=== PATIENT | female | born 1985 | race Caucasian/White ===

== ENCOUNTER 2018-06-30 14:58 | Inpatient (IN) | payer OTHER ==
[2018-06-30 17:53] VITALS: BMI 39.5
--- NOTE | 2018-06-30 19:22 | HP ---
CIWA Score - CIWA Score Nausea/Vomitin-Mild Nausea/No Vomiting Muscle Tremors: None Anxiety: 4-Mod. Anxious/Guarded Agitation: 1-Slight > Activity Paroxysmal Sweats: 2 Orientation: 0-Oriented Tacttile Disturbances: 0-None Auditory Disturbances: 0-None Visual Disturbances: 0-None Headache: 2-Mild CIWA-Ar Total Score: 10 Admission ROS BHS - HPI Allergies/Adverse Reactions: Allergies Allergy/AdvReac Type Severity Reaction Status Date / Time No Known Drug Allergies Allergy Verified 04/06/18 17:46 History of Present Illness: pt here requesting detox from etoh use , reports 2-3 bottles/day cocktails , reports tremors and anxiety , sweating , depression , went to crisis center in [place] , referred to this facility previously at this facility March 2018 , went to [facility] rehab , then had YESY 2/2 endometriosis and was given meds Vicodin, relapsed on ETOH use . Also reports abuse of cough syrup : DXM 2-4 /day , reports severe depression " like I am on the verge of suicide " if not taking cough syrup . Latest drink - this morning meseret 0.080 utox + all neg tobacco : vape , cigarettes pmhx : asthma ( hospitalized as teenager , never intubated ) psych hx : PTSD pshx : c-sx x 2 , yesy ages [age] live w/ pt and her upt neg . SHX : unemployed - Ebola screening Have you traveled outside of the country in the last 21 days: No Have you had contact with anyone from an Ebola affected area: No Have you been sick,other than usual withdrawal symptoms: No Do you have a fever: No - Review of Systems Constitutional: See HPI EENT: reports: Other (myopia) Respiratory: reports: No Symptoms reported Cardiac: reports: No Symptoms Reported GI: reports: Nausea : reports: No Symptoms Reported Musculoskeletal: reports: No Symptoms Reported Integumentary: reports: No Symptoms Reported Neuro: reports: No Symptoms reported Endocrine: reports: No Symptoms Reported Hematology: reports: No Symptoms Reported Psychiatric: reports: Judgement Intact, Mood/Affect Appropiate, Orientated x3 Patient History - Patient Medical History Hx Anemia: No Hx Asthma: Yes (ON PUMPS) Hx Chronic Obstructive Pulmonary Disease (COPD): No Hx Cancer: No Hx Cardiac Disorders: No Hx Congestive Heart Failure: No Hx Hypertension: No Hx Hypercholesterolemia: No Hx Pacemaker: No HX Cerebrovascular Accident: No Hx Seizures: No Hx Dementia: No Hx Diabetes: No Hx Gastrointestinal Disorders: No Hx Liver Disease: No Hx Genitourinary Disorders: No Hx Sexually Transmitted Disorders: No Hx Renal Disease (ESRD): No Hx Thyroid Disease: No Hx Human Immunodeficiency Virus (HIV): No Hx Hepatitis C: No Hx Depression: Yes (Denies current thoughts of suicide ) Hx Suicide Attempt: Yes (CUTTING WRIST) Hx Schizophrenia: No - Patient Surgical History Past Surgical History: Yes Hx Neurologic Surgery: No Hx Cataract Extraction: No Hx Cardiac Surgery: No Hx Lung Surgery: No Hx Breast Surgery: No Hx Breast Biopsy: No Hx Abdominal Surgery: No Hx Appendectomy: No Hx Cholecystectomy: No Hx Genitourinary Surgery: No Hx Section: Yes (C- SECTIONS X2) Hx Orthopedic Surgery: No Anesthesia Reaction: No - Reproductive History Last Menstrual Period: 03/28/18 - Smoking Cessation Smoking history: Current every day smoker Have you smoked in the past 12 months: Yes Aproximately how many cigarettes per day: 24 (Juul pods) Hx Chewing Tobacco Use: No Initiated information on smoking cessation: No Family Disease History - Family Disease History Family Disease History: Diabetes: Grandparent (MGM - DM, MGF - stomach cancer), Heart Disease: Grandparent, CA: Grandparent, Respiratory: Son (asthma), Daughter (asthma) Admission Physical Exam BHS - Vital Signs Vital Signs: Vital Signs - 24 hr 06/30/18 17:51 Temperature 97.1 F L Pulse Rate 115 H Respiratory 18 Rate Blood Pressure 112/68 - Physical General Appearance: Yes: No Apparent Distress, Intoxicated, Other (meseret 0.080) HEENTM: Yes: Hearing grossly Normal, Normocephalic, Normal Voice Respiratory: Yes: Chest Non-Tender, Lungs Clear, Normal Breath Sounds Neck: Yes: No masses,lesions,Nodules, Trachea in good position Breast: Yes: Breast Exam Deferred Cardiology: Yes: Regular Rhythm, Regular Rate, Tachycardia Abdominal: Yes: Normal Bowel Sounds, Non Tender, Protuberent Genitourinary: Yes: Within Normal Limits Back: Yes: Normal Inspection Musculoskeletal: Yes: full range of Motion, Gait Steady Extremities: Yes: Normal Capillary Refill, Normal Inspection, Normal Range of Motion, Tremors Neurological: Yes: Fully Oriented, Motor Strength 5/5, Normal Mood/Affect Integumentary: Yes: Normal Color, Dry, Warm - Diagnostic (1) Alcohol dependence with uncomplicated withdrawal Current Visit: No Status: Chronic (2) Dextromethorphan use disorder, moderate Current Visit: No Status: Chronic (3) History of asthma Current Visit: No Status: Chronic (4) Nicotine dependence Current Visit: No Status: Chronic Qualifiers: Nicotine product type: cigarettes Substance use status: uncomplicated Qualified Code(s): F17.210 - Nicotine dependence, cigarettes, uncomplicated BHS Breath Alcohol Content Breath Alcohol Content: 0.080 Urine Pregancy Test - Result Urine Test Results: Negative- NO Line Present Urine Drug Screen - Results Drug Screen Negative: Yes Urine Drug Screen Results: THC-Marijuana
[2018-06-30] MEDS ORDERED: MAGNESIUM CITRATE 300 ML BOTTLE PO PRN (19:25)
[2018-06-30] MEDS ORDERED: MAG HYDROX/AL HYDROX/SIMETH 30 ML UNIT-DOSE CUP PO PRN (19:25)
[2018-06-30] MEDS ORDERED: ACETAMINOPHEN 325 MG TABLET (FP) PO PRN (19:25)
[2018-06-30] MEDS ORDERED: chlordiazePOXIDE HCL 25 MG CAPSULE PO PRN (19:25)
[2018-06-30] MEDS ORDERED: MAGNESIUM HYDROX 2400MG/30ML ORAL SUSPENSION 30 ML CUP PO PRN (19:25)
[2018-06-30] MEDS ORDERED: guaiFENesin/D-METHORPHAN HB 10 ML UNIT-DOSE CUPS PO PRN (19:25)
[2018-06-30] MEDS ORDERED: P-EPHED 60MG/TRIPROLIDI 2.5MG TABLET PO PRN (19:25)
[2018-06-30] MEDS ORDERED: NICOTINE POLACRILEX 2 MG GUM BUC PRN (19:25)
[2018-06-30] MEDS ORDERED: MENTHOL/PHENOL 1 EACH UD MM PRN (19:25)
[2018-06-30] MEDS ORDERED: ALBUTEROL SO4 0.083% IH SOL 2.5 MG/3 ML VIAL.NEB. NEB PRN (19:35)
[2018-06-30] MEDS ORDERED: ALBUTEROL SO4 8 GM HFA INHALER IH PRN (19:35)
--- NOTE | 2018-06-30 19:39 | PN ---
BHS Progress Note Note: Vital Signs Temperature 97.1 F L 06/30/18 17:51 Pulse Rate 115 H 06/30/18 17:51 Respiratory Rate 18 06/30/18 17:51 Blood Pressure 112/68 06/30/18 17:51 O2 Sat by Pulse Oximetry (%) Patient reports feeling anxious and SOB. hx of asthma and anxiety. Patient used her Ventolin inhaler and reports some relief. Patient assessed, + anxious lungs clear skin intact, no cyanosis or erythema full ROM ambulatory albuterol neb tx given, patient SOB improved vitaril prn order increase fluids follow up with psych continue to monitor
[2018-06-30] MEDS: THIAMINE HCL 100 MG TABLET (FP) PO SCH (22:21)
[2018-06-30] MEDS: MONTELUKAST NA 10 MG TABLET PO SCH (22:21)
[2018-06-30] MEDS: chlordiazePOXIDE HCL 25 MG CAPSULE PO SCH (22:21)
[2018-06-30] MEDS: MELATONIN 5 MG TABLETS PO PRN (22:22)
[2018-07-01 01:06] LABS: URINE APPEARANCE CLOUDY; URINE BILIRUBIN NEGATIVE (<2.0 mg/dL); URINE COLOR YELLOW; URINE GLUCOSE (UA) NEGATIVE (NEGATIVE); URINE KETONE NEGATIVE (NEGATIVE); URINE LEUK ESTERASE NEGATIVE (NEGATIVE); URINE NITRITE NEGATIVE (NEGATIVE); URINE PROTEIN NEGATIVE (NEGATIVE); URINE UROBILINOGEN NEGATIVE mg/dL (0.2-1.0)
[2018-07-01] MEDS: chlordiazePOXIDE HCL 25 MG CAPSULE PO SCH ×4 (06:12→22:12)
--- NOTE | 2018-07-01 10:30 | CONSULT ---
[facility] Psychiatric Consult - Data Date of interview: 07/01/18 Admission source: [facility] Identifying data: This is a 32 years old female, , mother og five, living withy family, unsmployed, with no psychiatric hospitalization history, is here requesting detox from Alcohol, Cannabis Nicotine dependence, reporting withdrawal symptoms. Substance Abuse History: - Smoking Cessation. Smoking history: Current every day smoker. Have you smoked in the past 12 months: Yes. Aproximately how many cigarettes per day: 24 (Juul pods). Hx Chewing Tobacco Use: No. Initiated information on smoking cessation: NoReports long history of Cannabis dependence. Medical History: Anemia history, Obesity history, denies significant medical issues. Psychiatric History: Patient reports history of depression and anxiety, as per computer carries MDD, denies psychiatric hospitalizations history, reports taking prior to admission: Prozac 20mg poqd. Asking for antianxiety medications aid. Mental Status Exam - Mental Status Exam Alert and Oriented to: Person Cognitive Function: Fair Patient Appearance: Unkempt Mood: Anxious, Apprehensive Affect: Labile Patient Behavior: Cooperative Speech Pattern: Appropriate Voice Loudness: Normal Thought Process: Goal Oriented Thought Disorder: Being Controlled Hallucinations: Denies Suicidal Ideation: Denies Homicidal Ideation: Denies Insight/Judgement: Fair Sleep: Difficulty falling asleep Appetite: Fair Muscle strength/Tone: Normal Gait/Station: Normal Additional Comments: Prozac 20mg poqd Psychiatric Findings - Problem List ([place] 1, 2,3) (1) Alcohol-induced mood disorder Current Visit: No Status: Acute (2) MDD (major depressive disorder) Current Visit: No Status: Acute (3) Nicotine dependence with withdrawal Current Visit: No Status: Acute Qualifiers: Nicotine product type: unspecified Qualified Code(s): F17.203 - Nicotine dependence unspecified, with withdrawal (4) Alcohol dependence with uncomplicated withdrawal Current Visit: No Status: Chronic (5) Dextromethorphan use disorder, moderate Current Visit: No Status: Chronic (6) Nicotine dependence Current Visit: No Status: Chronic Qualifiers: Nicotine product type: cigarettes Substance use status: uncomplicated Qualified Code(s): F17.210 - Nicotine dependence, cigarettes, uncomplicated - Initial Treatment Plan Initial Treatment Plan: Prozac 20mg poqd. Vistaril 50mg po prn q4 for anxiety and agitation.
[2018-07-01 10:31] LABS: HEMATOCRIT 33.1 % (32.4-45.2); MCH 28.1 pg (25.7-33.7); MCHC 33.1 g/dl (32.0-36.0); MEAN CELL VOLUME 84.8 fl (80-96); MEAN PLT VOLUME 8.5 fl (7.5-11.1); PLATELET COUNT 244 K/MM3 (134-434); RDW 14.2 % (11.6-15.6); WHITE BLOOD COUNT 4.4 K/mm3 (4.0-10.0)
[2018-07-01] MEDS: PRENATAL VITAMINS W/ FOLIC ACID TABLET (FP) PO SCH (10:31)
[2018-07-01] MEDS: FLUoxetine HCL 20 MG CAPSULE (FP) PO SCH (10:31)
[2018-07-01 10:50] LABS: ALBUMIN 3.4 g/dl (3.4-5.0); ALK PHOS 96 U/L (45-117); ANION GAP 9 MMOL/L (8-16); BILIRUBIN,TOTAL 0.1 mg/dL (0.2-1); BLOOD UREA NITROGEN 9 mg/dL (7-18); CALCIUM 8.5 mg/dL (8.5-10.1); CHLORIDE 108 mmol/L (98-107); CO2 25 mmol/L (21-32); CREATININE 0.7 mg/dL (0.55-1.3); GLUCOSE,RANDOM 93 mg/dL (74-106); POTASSIUM 4.1 mmol/L (3.5-5.1); SGOT/AST 19 U/L (15-37); SGPT/ALT 38 U/L (13-61); SODIUM 141 mmol/L (136-145); TOT PROT 6.6 g/dl (6.4-8.2)
[2018-07-01] MEDS: hydrOXYzine PAMOATE 50 MG CAPSULE (FP) PO PRN (12:53)
--- NOTE | 2018-07-01 16:27 | PN ---
S CIWA - CIWA Score Nausea/Vomitin-Mild Nausea/No Vomiting Muscle Tremors: 3 Anxiety: 4-Mod. Anxious/Guarded Agitation: 2 Paroxysmal Sweats: 1-Minimal Palms Moist Orientation: 0-Oriented Tacttile Disturbances: 0-None Auditory Disturbances: 0-None Visual Disturbances: 0-None Headache: 1-Very Mild CIWA-Ar Total Score: 12 BHS Progress Note (SOAP) Subjective: sweat tremor anxiety restlessness gi distress Objective: 07/01/18 16:26 Vital Signs Temperature 98.1 F 07/01/18 14:00 Pulse Rate 76 07/01/18 14:00 Respiratory Rate 16 07/01/18 14:00 Blood Pressure 111/67 07/01/18 14:00 O2 Sat by Pulse Oximetry (%) Laboratory Last Values WBC 4.4 K/mm3 (4.0-10.0) 07/01/18 07:00 RBC 3.90 M/mm3 (3.60-5.2) 07/01/18 07:00 Hgb 11.0 GM/dL (10.7-15.3) 07/01/18 07:00 Hct 33.1 % (32.4-45.2) 07/01/18 07:00 MCV 84.8 fl (80-96) 07/01/18 07:00 MCH 28.1 pg (25.7-33.7) 07/01/18 07:00 MCHC 33.1 g/dl (32.0-36.0) 07/01/18 07:00 RDW 14.2 % (11.6-15.6) 07/01/18 07:00 Plt Count 244 K/MM3 (134-434) 07/01/18 07:00 MPV 8.5 fl (7.5-11.1) 07/01/18 07:00 Sodium 141 mmol/L (136-145) 07/01/18 07:00 Potassium 4.1 mmol/L (3.5-5.1) 07/01/18 07:00 Chloride 108 mmol/L (98-107) H 07/01/18 07:00 Carbon Dioxide 25 mmol/L (21-32) 07/01/18 07:00 Anion Gap 9 MMOL/L (8-16) 07/01/18 07:00 BUN 9 mg/dL (7-18) 07/01/18 07:00 Creatinine 0.7 mg/dL (0.55-1.3) 07/01/18 07:00 Creat Clearance w eGFR > 60 (>60) 07/01/18 07:00 Random Glucose 93 mg/dL (74-106) 07/01/18 07:00 Calcium 8.5 mg/dL (8.5-10.1) 07/01/18 07:00 Total Bilirubin 0.1 mg/dL (0.2-1) L 07/01/18 07:00 AST 19 U/L (15-37) 07/01/18 07:00 ALT 38 U/L (13-61) 07/01/18 07:00 Alkaline Phosphatase 96 U/L (45-117) 07/01/18 07:00 Total Protein 6.6 g/dl (6.4-8.2) 07/01/18 07:00 Albumin 3.4 g/dl (3.4-5.0) 07/01/18 07:00 Urine Color Yellow 06/30/18 23:00 Urine Appearance Cloudy 06/30/18 23:00 Urine pH 7.0 (5.0-8.0) 06/30/18 23:00 Ur Specific [place] 1.017 (1.010-1.035) 06/30/18 23:00 Urine Protein Negative (NEGATIVE) 06/30/18 23:00 Urine Glucose (UA) Negative (NEGATIVE) 06/30/18 23:00 Urine Ketones Negative (NEGATIVE) 06/30/18 23:00 Urine Blood Negative (NEGATIVE) 06/30/18 23:00 Urine Nitrite Negative (NEGATIVE) 06/30/18 23:00 Urine Bilirubin Negative (<2.0 mg/dL) 06/30/18 23:00 Urine Urobilinogen Negative mg/dL (0.2-1.0) 06/30/18 23:00 Ur Leukocyte Esterase Negative (NEGATIVE) 06/30/18 23:00 RPR Titer Nonreactive (NONREACTIVE) 07/01/18 07:00 HIV 1&2 Antibody Screen Negative 07/01/18 07:00 HIV P24 Antigen Negative 07/01/18 07:00 lab noted Assessment: 07/01/18 16:26 withdrawal sx Plan: continue detox
[2018-07-01] MEDS: MONTELUKAST NA 10 MG TABLET PO SCH (22:12)
[2018-07-01] MEDS: MELATONIN 5 MG TABLETS PO PRN (22:12)
[2018-07-01] MEDS: THIAMINE HCL 100 MG TABLET (FP) PO SCH (22:12)
[2018-07-01] MEDS: IBUPROFEN 400 MG TABLET (FP) PO PRN (22:13)
[2018-07-02] MEDS: chlordiazePOXIDE HCL 25 MG CAPSULE PO SCH ×3 (06:36→17:19)
[2018-07-02] MEDS: PRENATAL VITAMINS W/ FOLIC ACID TABLET (FP) PO SCH (11:00)
[2018-07-02] MEDS: FLUoxetine HCL 20 MG CAPSULE (FP) PO SCH (11:00)
--- NOTE | 2018-07-02 16:02 | PN ---
S CIWA - CIWA Score Nausea/Vomitin-No Nausea/No Vomiting Muscle Tremors: 3 Anxiety: 1-Mildly Anxious Agitation: 2 Paroxysmal Sweats: 1-Minimal Palms Moist Orientation: 0-Oriented Tacttile Disturbances: 1-Very Mild Itch/Numbness Auditory Disturbances: 0-None Visual Disturbances: 0-None Headache: 1-Very Mild CIWA-Ar Total Score: 9 BHS Progress Note (SOAP) Subjective: tremor sweat anxiety restlessness gi distress Objective: 07/02/18 16:02 Vital Signs Temperature 98.6 F 07/02/18 13:49 Pulse Rate 77 07/02/18 13:49 Respiratory Rate 18 07/02/18 13:49 Blood Pressure 122/74 07/02/18 13:49 O2 Sat by Pulse Oximetry (%) Laboratory Last Values WBC 4.4 K/mm3 (4.0-10.0) 07/01/18 07:00 RBC 3.90 M/mm3 (3.60-5.2) 07/01/18 07:00 Hgb 11.0 GM/dL (10.7-15.3) 07/01/18 07:00 Hct 33.1 % (32.4-45.2) 07/01/18 07:00 MCV 84.8 fl (80-96) 07/01/18 07:00 MCH 28.1 pg (25.7-33.7) 07/01/18 07:00 MCHC 33.1 g/dl (32.0-36.0) 07/01/18 07:00 RDW 14.2 % (11.6-15.6) 07/01/18 07:00 Plt Count 244 K/MM3 (134-434) 07/01/18 07:00 MPV 8.5 fl (7.5-11.1) 07/01/18 07:00 Sodium 141 mmol/L (136-145) 07/01/18 07:00 Potassium 4.1 mmol/L (3.5-5.1) 07/01/18 07:00 Chloride 108 mmol/L (98-107) H 07/01/18 07:00 Carbon Dioxide 25 mmol/L (21-32) 07/01/18 07:00 Anion Gap 9 MMOL/L (8-16) 07/01/18 07:00 BUN 9 mg/dL (7-18) 07/01/18 07:00 Creatinine 0.7 mg/dL (0.55-1.3) 07/01/18 07:00 Creat Clearance w eGFR > 60 (>60) 07/01/18 07:00 Random Glucose 93 mg/dL (74-106) 07/01/18 07:00 Calcium 8.5 mg/dL (8.5-10.1) 07/01/18 07:00 Total Bilirubin 0.1 mg/dL (0.2-1) L 07/01/18 07:00 AST 19 U/L (15-37) 07/01/18 07:00 ALT 38 U/L (13-61) 07/01/18 07:00 Alkaline Phosphatase 96 U/L (45-117) 07/01/18 07:00 Total Protein 6.6 g/dl (6.4-8.2) 07/01/18 07:00 Albumin 3.4 g/dl (3.4-5.0) 07/01/18 07:00 Urine Color Yellow 06/30/18 23:00 Urine Appearance Cloudy 06/30/18 23:00 Urine pH 7.0 (5.0-8.0) 06/30/18 23:00 Ur Specific [place] 1.017 (1.010-1.035) 06/30/18 23:00 Urine Protein Negative (NEGATIVE) 06/30/18 23:00 Urine Glucose (UA) Negative (NEGATIVE) 06/30/18 23:00 Urine Ketones Negative (NEGATIVE) 06/30/18 23:00 Urine Blood Negative (NEGATIVE) 06/30/18 23:00 Urine Nitrite Negative (NEGATIVE) 06/30/18 23:00 Urine Bilirubin Negative (<2.0 mg/dL) 06/30/18 23:00 Urine Urobilinogen Negative mg/dL (0.2-1.0) 06/30/18 23:00 Ur Leukocyte Esterase Negative (NEGATIVE) 06/30/18 23:00 RPR Titer Nonreactive (NONREACTIVE) 07/01/18 07:00 HIV 1&2 Antibody Screen Negative 07/01/18 07:00 HIV P24 Antigen Negative 07/01/18 07:00 lab noted Assessment: 07/02/18 16:02 withdrawal sx Plan: continue detox
[2018-07-02] MEDS: hydrOXYzine PAMOATE 50 MG CAPSULE (FP) PO PRN (17:20)
[2018-07-02] MEDS: MONTELUKAST NA 10 MG TABLET PO SCH (22:16)
[2018-07-02] MEDS: THIAMINE HCL 100 MG TABLET (FP) PO SCH (22:16)
[2018-07-02] MEDS: chlordiazePOXIDE 5 MG CAPSULE PO SCH (22:16)
[2018-07-02] MEDS: MELATONIN 5 MG TABLETS PO PRN (22:17)
[2018-07-03] MEDS: chlordiazePOXIDE 5 MG CAPSULE PO SCH ×3 (05:58→18:15)
[2018-07-03] MEDS: IBUPROFEN 400 MG TABLET (FP) PO PRN (06:00)
[2018-07-03] MEDS: PRENATAL VITAMINS W/ FOLIC ACID TABLET (FP) PO SCH (10:31)
[2018-07-03] MEDS: FLUoxetine HCL 20 MG CAPSULE (FP) PO SCH (10:31)
--- NOTE | 2018-07-03 12:24 | PN ---
BHS Progress Note (SOAP) Subjective: low back pain sweats Objective: 07/03/18 12:24 Vital Signs Temperature 97.7 F 07/03/18 10:04 Pulse Rate 78 07/03/18 10:04 Respiratory Rate 20 07/03/18 10:04 Blood Pressure 118/60 07/03/18 10:04 O2 Sat by Pulse Oximetry (%) aaox3 ambulating no acute distress Assessment: 07/03/18 12:24 mild withdrawal sx Plan: continue detox increase fluids lidocaine patch x one
[2018-07-03] MEDS ORDERED: LIDOCAINE 5% TOPICAL PATCH TP ONE (13:00)
[2018-07-03] MEDS: hydrOXYzine PAMOATE 50 MG CAPSULE (FP) PO PRN (13:15)
[2018-07-03] MEDS ORDERED: LIDOCAINE PATCH REMOVAL MC SCH (22:00)
[2018-07-03] MEDS: MONTELUKAST NA 10 MG TABLET PO SCH (22:48)
[2018-07-03] MEDS: THIAMINE HCL 100 MG TABLET (FP) PO SCH (22:48)
[2018-07-03] MEDS: chlordiazePOXIDE HCL 10 MG CAPSULE PO SCH (22:48)
[2018-07-04] MEDS: chlordiazePOXIDE HCL 10 MG CAPSULE PO SCH ×2 (05:42→10:57)
[2018-07-04 08:25] VITALS: TEMP 97.9
[2018-07-04] MEDS: PRENATAL VITAMINS W/ FOLIC ACID TABLET (FP) PO SCH (09:26)
[2018-07-04] MEDS: hydrOXYzine PAMOATE 50 MG CAPSULE (FP) PO PRN (09:26)
[2018-07-04] MEDS: FLUoxetine HCL 20 MG CAPSULE (FP) PO SCH (09:26)
[2018-07-04 10:03] VITALS: BP 110/58; PULSE 73
--- NOTE | 2018-07-04 18:02 | DS ---
[facility] Detox Discharge Summary Admission Date: 06/30/18 Discharge Date: 07/04/18 - History Present History: Alcohol Dependence - Physical Exam Results Vital Signs: Vital Signs Temperature 97.9 F 07/04/18 10:03 Pulse Rate 73 07/04/18 10:03 Respiratory Rate 16 07/04/18 10:03 Blood Pressure 110/58 L 07/04/18 10:03 O2 Sat by Pulse Oximetry (%) Pertinent Admission Physical Exam Findings: PATIENT COMPLETED DETOX WITHOUT ADVERSE EVENT. PATIENT MEDICALLY STABLE. DENIES SI/HI. PATIENT TO FOLLOW UP WITH [facility] 07/06/18 FOR REHAB SERVICES. PATIENT ENCOURAGED TO ATTEND GROUP MEETINGS TO PREVENT RELAPSE. PATIENT RECOMMENDED TO SEEK MEDICAL ATTENTION IF WITHDRAWAL SYMPTOMS OCCUR. - Treatment Hospital Course: Detox Protocol Followed, Detoxed Safely, Responded well, Discharged Condition Good, Rehab Referral Accepted Patient has Accepted a Rehab Referral to: TO FOLLOW UP FRIDAY WITH [facility] - Medication Discharge Medications: Ambulatory Orders Albuterol Sulfate Inhaler - [Ventolin HFA Inhaler -] 2 puff IH Q4H PRN 06/30/18 Fluoxetine HCl 20 mg PO DAILY 06/30/18 Prazosin HCl [Minipress -] 2 mg PO DAILY 06/30/18 Fluoxetine HCl [Prozac -] 20 mg PO DAILY #30 capsule 07/01/18 - AMA Did Patient Leave Against Medical Advice: No
== END 2018-07-04 09:24 | disposition home or self-care (01) | DRG 775 ==
LOC: YASAS 14:58 → Y6N 20:17
PROC: HZ2ZZZZ Detoxification Services for Substance Abuse Treatment (ICD-10-PCS; principal; 2018-06-30)
DX: F10.230 Alcohol dependence with withdrawal, uncomplicated (principal); F19.10 Other psychoactive substance abuse, uncomplicated; F10.24 Alcohol dependence with alcohol-induced mood disorder; F33.9 Major depressive disorder, recurrent, unspecified; J45.909 Unspecified asthma, uncomplicated; Z91.5 Personal history of self-harm
CPT/HCPCS: 36415; 80053; 81003; 85027; 86593; 87389